=== PATIENT | female | born 1945 | race Caucasian/White ===

== ENCOUNTER 2016-08-19 10:23 | Emergency (ER) | payer MEDICARE, MEDICAID ==
[2016-08-19] MEDS ORDERED: MEPERIDINE HCL/PF 50 MG/ML SYRG IV ONE (10:55)
[2016-08-19] MEDS ORDERED: MEPERIDINE HCL/PF 50 MG/ML SYRG ONE (10:57)
[2016-08-19 11:08] LABS: Hematocrit 46.3 % (37.0-47.0); Hemoglobin 15.3 gm/dL (12.5-16.0); Mean Cell Volume 83.4 fl (78-100); Mean Corpuscular Hemoglobin 27.6 pg (27-31); Mean Platelet Volume 9.8 fl (6.0-9.5); Neutrophil # 3.6 K/mm3 (1.3-6.0); Neutrophil % 66.5 % (42-75.0); Platelet Count 170 K/mm3 (150-450); Red Blood Count 5.55 M/mm3 (4.2-5.4); White Blood Count 5.4 K/mm3 (4.0-10.5)
[2016-08-19 11:22] LABS: Albumin * 3.5 gm/dl (3.4-5.0); Anion Gap 14.4 mmol/L (6.8-13.8); Bilirubin, Total 0.3 mg/dL (0.0-1.1); Ca. Corrected For Albumin 9.2 mg/dL (8.4-10.2); Calcium * 9.1 mg/dL (7.9-10.9); Carbon Dioxide 24.2 mmol/L (24-32.6); Potassium 3.6 mmol/L (3.4-4.6); Total Protein 7.3 gm/dL (6.2-8.2)
[2016-08-19] MEDS ORDERED: ORPHENADRINE CITRATE 100 MG TABLET.SA PO ONE ×2 (11:45→11:51)
[2016-08-19 12:28] LABS: Urine Bilirubin Negative (NEGATIVE); Urine Ketone Negative (NEGATIVE); Urine Protein Negative (NEGATIVE); Urine Urobilinogen Normal (NORMAL); Urine pH 5.5 pH (5.0-7.0)
[2016-08-19 12:30] LABS: Urine Appearance Slightly Cloudy; Urine Bacteria 3+; Urine Blood 10 /ul (NEGATIVE); Urine Color Yellow; Urine Nitrite Positive (NEGATIVE); Urine RBC 0-5 /hpf (0-5)
--- NOTE | 2016-08-19 14:01 | ERNOTE ---
Back Pain ER HPI Presenting Symptoms: injury/pain to back Time Seen by Provider: 08/19/16 10:49 Source: patient Exam Limitations: no limitations Immunizations: IMMUNIZATION HX Immunizations Up to Date Yes History of Influenza Vaccine Yes Hx Pneumococcal Vaccination No Allergies/Adverse Reactions: Allergies metronidazole [From Flagyl] Allergy (Mild, Verified 08/19/16 10:44) Hives Metronidazole HCl [From Flagyl] Allergy (Mild, Verified 08/19/16 10:44) Hives Iodinated Contrast Media - IV Dye Adverse Reaction (Mild, Verified 08/19/16 10: 44) HOT FLASHES, SEVERE HEADACHE iodine Adverse Reaction (Mild, Verified 08/19/16 10:44) HOT FLASHES, SEVERE HEADACHE morphine Adverse Reaction (Mild, Verified 08/19/16 10:44) GI, HALLUCINATIONS oxycodone [Oxycodone] Adverse Reaction (Mild, Verified 08/19/16 10:44) GI, HALLUCINATIONS Home Medications: HOME MEDICATIONS Levothyroxine Sodium [Tirosint] 50 mcg PO DAILY 11/14/13 [Last Taken 12/22/13] Aspirin [Aspirin Enteric Coated] 81 mg PO DAILY 03/06/14 [Last Taken Unknown] traMADol HCL [Ultram] 50 mg PO TID PRN 03/06/14 [Last Taken Unknown] Lisinopril [Zestril] 10 mg PO DAILY 11/20/15 [Last Taken Unknown] Metoclopramide HCl [Reglan] 10 mg PO ACHS PRN #60 tab 11/20/15 [Last Taken Unknown] busPIRone HCL [Buspar] 20 mg PO DAILY 11/20/15 [Last Taken Unknown] Ciprofloxacin HCl [Cipro] 500 mg PO BID #14 tab 08/19/16 [Last Taken Unknown] Dicyclomine HCl [Bentyl] 20 mg PO PRN 08/19/16 [Last Taken Unknown] Omeprazole 40 mg PO DAILY 08/19/16 [Last Taken Unknown] Orphenadrine Citrate [Norflex] 100 mg PO Q12H #15 tablet.sa 08/19/16 [Last Taken Unknown] Narrative: Patient began having low back pain Thursday. No injury. This waxed and waned and became worse Thursday. Hurts to move and radiates to her abdomen but she relates chronic abdominal pain. No falls. No radiation of pain to legs. No focal N/T/W. No loss of bowel or bladder control. No CP or SOB. No fever. Went to Chiropractor. Pain can be severe. Worse with turning or movement. Timing: Reports: constant Quality/Severity: Reports: moderate Location of pain: Reports: lower back, no radiation. Denies: radiating to rt thigh/leg, radiating to lf thigh/leg Activities at Onset: Reports: none Recent Injury?: Reports: no Modifying Factors - (Improves): Reports: other - rest Modifying Factors - (Worsens): Reports: movement to right, movement to left Associated Symptoms: Denies: fever/chills, constipation/incontinence, nausea/ vomiting, problems urinating, difficulty walking, numbess/weakness in legs Prior Treament: Denies: treated by physician Review of Systems - Review of Systems Constitutional: Present: no symptoms reported EYE: Present: no symptoms reported Respiratory: Present: no symptoms reported. Absent: shortness of breath Cardiology: Absent: chest pain Gastrointestinal/Abdominal: Present: See HPI Skin: Absent: rash Neurological: Absent: weakness All Other Systems: All systems neg except as marked - Patient's Past Medical History Patient History - Medical: GERD, Hypothyroidism, Other Patient History - Cancer: No Hx of Cancer Patient History - Surgical Procedures: Appendectomy, Cholecystectomy, Hysterectomy - Social History Smoking Status: Former smoker Have you smoked in the past 12 months: No Do you dip or chew tobacco: No Alcohol Use: none Drug Use: none Physical Exam - Physical Exam General Appearance: Present: alert, no apparent distress. Absent: anxious, lethargic Eye Exam: Normal inspection: bilateral Ears, Nose, Throat: Present: normal ENT inspection Neck: Present: normal inspection Respiratory: Present: no respiratory distress, normal breath sounds, no accessory muscle use, lungs clear Cardiovascular/Chest: Present: regular rate, rhythm, no murmur, normal peripheral pulses Gastrointestinal/Abdominal: Present: normal bowel sounds, nondistended, soft, no organomegaly, other - Minimal suprapubic tenderness. No guarding or rebound. No peritoneal signs. Non-surgical abdomen. Back Exam: Present: normal inspection, other - tenderness paraspinal muscles bilaterally low back. palpation of the musculature seems to reproduce her pain. Neurological Exam: Present: alert, normal mood/affect, no motor/sensory deficits , equipment services associate II-XII nml as tested, other - Patellar tendon reflexes equal and symmetric. No motor or sensory deficits. No evidence of neuro deficit or cauda -equina syndrome.. Absent: motor weakness Skin Exam: Absent: skin rash ED Progress - Results and Orders Patient's Lab Results:: I have reviewed the patient's lab results. - Vital Signs Patient's Vital Signs:: I have reviewed the patient's vital signs. Vital Signs: Vital Signs 08/19/16 08/19/16 08/19/16 10:40 11:10 11:40 Temperature 36.4 C L Pulse Rate 112 H 83 73 Respiratory 14 Rate Blood Pressure 147/95 134/79 122/57 O2 Sat by Pulse 96 Oximetry 08/19/16 08/19/16 12:04 13:26 Temperature Pulse Rate 76 63 Respiratory 16 Rate Blood Pressure 142/69 O2 Sat by Pulse 97 97 Oximetry - CT/Ultrasound CT/Ultrasound Narrative: CT abd/pelvis reviewed radiology report. - Progress/Reassessment Chief Complaint: Back Pain Progress:: Improved Progress Note-Subjective: 08/19/16 13:55 No evidence of cauda-equina syndrome. No clear acute intra-abdominal process. Clinically muscular pain, nothing to suggest diskitis or abscess. UTI noted. She feels like going home. I discussed warning signs and reasons to return as well as the need for close f/u. - Transfer of Care Additional Notes: No evidence of sepsis or pyelonephritis. Departure Clinical Impression: Back pain - Departure Disposition: Home self-care Condition: Stable Instructions: Back Pain, Adult Additional Instructions: Rest. Antibiotic and muscle relaxant as directed. Follow-up with your primary doctor within 48 hours for a re-check. Return for fever, vomiting, increased pain, numbness, tingling, weakness, loss of bowel or bladder control or if your condition worsens or changes in any way. Prescriptions: Ciprofloxacin HCl [Cipro] 500 mg PO BID #14 tab Orphenadrine Citrate [Norflex] 100 mg PO Q12H #15 tablet.sa
[2016-08-19 14:41] VITALS: BP 133/67
== END 2016-08-19 14:20 | disposition home or self-care (01) ==
LOC: ER 10:23
DX: M54.5 Low back pain (principal); Z87.891 Personal history of nicotine dependence; E03.9 Hypothyroidism, unspecified; K21.9 Gastro-esophageal reflux disease without esophagitis; R10.9 Unspecified abdominal pain

== ENCOUNTER 2016-10-12 02:07 | Observation (INO) | payer MEDICARE, MEDICAID ==
[2016-10-12] MEDS ORDERED: NITROGLYCERIN 0.4 MG/TAB BTL SL ONE (02:19)
[2016-10-12] MEDS ORDERED: BELLADONNA ALKALOIDS/PHENOBARB 60 ML BTL PO ONE (02:21)
[2016-10-12] MEDS ORDERED: MAG HYDROX/ALUMINUM HYD/SIMETH 30 ML UDC PO ONE ×2 (02:21→02:22)
[2016-10-12] MEDS ORDERED: LIDOCAINE HCL 20 ML UDC PO ONE ×2 (02:21→02:22)
[2016-10-12 02:37] LABS: Hematocrit 40.8 % (37.0-47.0); Hemoglobin 13.9 gm/dL (12.5-16.0); Mean Cell Volume 82.6 fl (78-100); Mean Corpuscular Hemoglobin 28.1 pg (27-31); Mean Corpuscular Hgb Conc 34.1 g/dl (32-36); Mean Platelet Volume 10.4 fl (6.0-9.5); Neutrophil # 3.8 K/mm3 (1.3-6.0); Neutrophil % 79.9 % (42-75.0); Platelet Count 137 K/mm3 (150-450); Red Blood Count 4.94 M/mm3 (4.2-5.4); Red Cell Distribution Width 13.6 % (11.5-14.0); White Blood Count 4.8 K/mm3 (4.0-10.5)
--- NOTE | 2016-10-12 02:44 | ERNOTE ---
Chest Pain/Cardiac HPI Chief Complaint: Chest Pain Time Seen by Provider: 10/12/16 02:21 Source: patient Exam Limitations: no limitations Immunizations: IMMUNIZATION HX Immunizations Up to Date Yes History of Influenza Vaccine Yes Hx Pneumococcal Vaccination No Allergies/Adverse Reactions: Allergies metronidazole [From Flagyl] Allergy (Mild, Verified 08/19/16 10:44) Hives Metronidazole HCl [From Flagyl] Allergy (Mild, Verified 08/19/16 10:44) Hives Iodinated Contrast Media - IV Dye Adverse Reaction (Mild, Verified 08/19/16 10: 44) HOT FLASHES, SEVERE HEADACHE iodine Adverse Reaction (Mild, Verified 08/19/16 10:44) HOT FLASHES, SEVERE HEADACHE morphine Adverse Reaction (Mild, Verified 08/19/16 10:44) GI, HALLUCINATIONS oxycodone [Oxycodone] Adverse Reaction (Mild, Verified 08/19/16 10:44) GI, HALLUCINATIONS Home Medications: HOME MEDICATIONS Levothyroxine Sodium [Tirosint] 50 mcg PO DAILY 11/14/13 [Last Taken 12/22/13] Aspirin [Aspirin Enteric Coated] 81 mg PO DAILY 03/06/14 [Last Taken Unknown] traMADol HCL [Ultram] 50 mg PO TID PRN 03/06/14 [Last Taken Unknown] Lisinopril [Zestril] 10 mg PO DAILY 11/20/15 [Last Taken Unknown] Metoclopramide HCl [Reglan] 10 mg PO ACHS PRN #60 tab 11/20/15 [Last Taken Unknown] busPIRone HCL [Buspar] 20 mg PO DAILY 11/20/15 [Last Taken Unknown] Ciprofloxacin HCl [Cipro] 500 mg PO BID #14 tab 08/19/16 [Last Taken Unknown] Dicyclomine HCl [Bentyl] 20 mg PO PRN 08/19/16 [Last Taken Unknown] Omeprazole 40 mg PO DAILY 08/19/16 [Last Taken Unknown] Orphenadrine Citrate [Norflex] 100 mg PO Q12H #15 tablet.sa 08/19/16 [Last Taken Unknown] Narrative: Here for substernal chest pain which woke her up from sleep. chest pain is substernal and pressure like and radiated to the right jaw area. She was brought in by ambulance, had two nitros and it felt better but still there. After the third nitro pain got better yet, it completely resolved after GI coctail Review of Systems - Review of Systems Constitutional: Present: fatigue EYE: Present: no symptoms reported ENT: Present: no symptoms reported Respiratory: Present: no symptoms reported Cardiology: Present: See HPI Gastrointestinal/Abdominal: Present: See HPI Musculoskeletal: Present: no symptoms reported Skin: Present: no symptoms reported - Patient's Past Medical History Patient History - Medical: GERD, Hypothyroidism, Other Patient History - Cardiac/Respiratory: Hypertension Patient History - Cancer: No Hx of Cancer Patient History - Surgical Procedures: Appendectomy, Cholecystectomy, Hysterectomy Patient History - Other: None - Social History Psych History: No pertinent hx Smoking Status: Former smoker Have you smoked in the past 12 months: No Alcohol Use: none Drug Use: none - Immunizations Immunizations Up to Date: Yes Hx Pneumococcal Vaccination: No History of Influenza Vaccine: Yes Physical Exam - Physical Exam General Appearance: Present: wd/wn, alert, no apparent distress Ears, Nose, Throat: Present: normal ENT inspection Neck: Present: normal inspection, nontender Respiratory: Present: no respiratory distress, normal breath sounds, no accessory muscle use, chest nontender, lungs clear Cardiovascular/Chest: Present: regular rate, rhythm, no murmur, normal peripheral pulses Gastrointestinal/Abdominal: Present: normal bowel sounds, nontender, nondistended, soft, no organomegaly Extremity Exam: Present: normal inspection, non-tender Neurological Exam: Present: alert, oriented, normal mood/affect ED Progress - Results and Orders Patient's Lab Results:: I have reviewed the patient's lab results. - Vital Signs Patient's Vital Signs:: I have reviewed the patient's vital signs. Vital Signs: Vital Signs 10/12/16 02:12 Temperature 37.1 C Pulse Rate 104 H Respiratory 14 Rate Blood Pressure 144/78 O2 Sat by Pulse 94 Oximetry - X-Ray X-Ray #1 X-Ray: chest - Progress/Reassessment Chief Complaint: Chest Pain Departure - Departure Clinical Impression: Chest pain Qualifiers: Chest pain type: unspecified Qualified Code(s): R07.9 - Chest pain, unspecified Disposition: [facility] Condition: Fair Referrals: Jennifer Perez MD [Primary Care Provider] -
--- OUTSIDE RECORDS SUMMARY | 2016-10-12 02:49 | XMS REPORT | Continuity of Care Document ---
:1945 Author Organization [facility] ([facility]) Address [address] [place] [address] Phone [phone] Care Team Providers Name Role Phone Jennifer Perez Primary Care Provider [phone] Source Comments This disclosure is being made pursuant to the Care Everywhere program, applicable federal and state laws, and may not contain all informaitonavailable regarding this patient.[facility] ([facility]) Active Allergies and Adverse Reactions Allergen Noted Date Severity Reactions Comments Iodinated Contrast 01/03/2014 Tachycardia Patient states she has Media - Oral And Iv a reaction to IV Dye contrast in 2009. She became tachycardic and "very sick". She has taken premeds before and was fine. SASmith Morphine Nausea & dilusions Vomiting,Stomach Pain Other Agent Nausea & red dye Contrast Dye Vomiting,Stomach Pain Oxycodone 12/04/2009 Nausea & Vomiting Current Medications Prescription Sig. Disp. Refills Start Date End Date Status traMADol 50 mg Take 50 mg by Active tablet mouth 3 times daily as needed. aspirin 81 mg EC Take 81 mg by Active tablet mouth daily. LISINOPRIL 10 mg Take 1 Tab by 11/08/2014 Active tablet mouth daily. busPIRone 10 mg Take 2 Tabs by 60 Tab 5 11/14/2014 Active tablet mouth at bedtime. Indications: abd pain diclofenac Apply Active (VOLTAREN) 1 % topically 4 topical gel times daily SUPPLY TRUETEST 0 07/24/2015 Active blood glucose test strip omeprazole 40 mg Take 1 capsule 180 capsule 3 02/26/2016 Active enteric coated (40 mg total) capsule by mouth 2 times daily. levothyroxine 50 Take 1 tablet 1 08/05/2016 Active mcg tablet by mouth daily. LIDOCAINE VISCOUS 2 Take 15 mL by 0 07/23/2016 Active % solution mouth as needed. cholestyramine-aspa Take 4 g by 210 g 1 09/23/2016 Active rtame 4 gram oral mouth daily. powder levothyroxine Take 25 mcg by Discontinued (LEVOTHROID) 25 mcg mouth every 7 tablet morning before breakfast. riFAXimin (XIFAXAN) Take 1 tablet 20 tablet 0 03/14/2016 Discontinued 550 mg tablet (550 mg total) 7 by mouth 2 times daily. cholestyramine-aspa Take 2 g by 210 g 1 04/10/2016 Discontinued rtame 4 gram oral mouth daily. 7 powder Active Problems Problem Noted Date Hypokalemia 03/20/2014 Acute gastritis 01/06/2014 Migraine without intractable migraine 01/06/2014 Acute gastritis without mention of hemorrhage 01/05/2014 Abdominal pain, epigastric 01/02/2014 Hypothyroidism 01/02/2014 Abdominal pain, chronic, epigastric 07/07/2013 Intestinal bacterial overgrowth 07/07/2013 SAH (subarachnoid hemorrhage) 02/28/2010 Overview: 2002 cerebral aneurysm? CT angio x 2 without obvious aneurysm. Cataract 01/11/2009 Overview: L eye. Surgery would not help due to the Macular Degeneration Diverticulosis of colon 01/11/2009 Macular degeneration (senile) of retina, unspecified 09/25/2008 Last Assessment & Plan: Formatting of this note may be different from the original. RIGHT EYE LEFT EYE Date Diagnosis Procedure Comments Diagnosis Procedure Comments negative negative Esophageal reflux 01/04/2008 Other and unspecified hyperlipidemia 03/03/2007 Chronic low back pain 03/03/2007 Resolved Problems Problem Noted Date Resolved Date termite helper (current) use of anticoagulants 03/04/2010 07/07/2013 Overview: ANTICOAGULATION PROFILE: Primary Number: Other [Mendy Fleming, [id number] (okay to discuss INR results with maria alejandra Pelletier] PHYSICIAN: Shadi Murguia Pharmacy: [facility] LOCAL LAB: Name: [facility] Indication for Warfarin: Superior Mesenteric Vein Thrombosis Target INR Range: 2.0-3.0 Duration of Warfarin Therapy: 6 months (per Dr. 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 07/07/2013 Most Recent Encounters Date Type Specialty Providers Description 09/23/2016 Office Visit Med GI/Hepatology Jose Luis Montero MD Dx: Diarrhea, Carol Arauz, unspecified type PA-C (Primary Dx) 09/23/2016 Telephone Pharmacy Maria A David [facility] Chief Comp: Medication Question 09/16/2016 Office Visit Med GI/Hepatology Jose Luis Montero MD Chief Comp: Patient Carol Arauz, Reported Reason For PA-C Visit Immunizations Name Dates Previously Given Next Due Pneumococcal Polysaccharide, PPSV23 (Pneumovax 23) 11/27/2009 Social History Tobacco Use Types Packs/Day Years Used Date Former Smoker Cigarettes 1 46 Quit: 04/26/2008 Smokeless Tobacco: Never Used Tobacco Cessation:Counseling Given: Yes Comments:quit 04/2008 Alcohol Use Drinks/Week oz/Week Comments No Last Filed Vital Signs Vital Sign Reading Time Taken Blood Pressure 144/85 09/23/2016 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 Pulse 74 09/23/2016 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 Temperature 36.6 C (97.9 F) 09/23/2016 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 Respiratory Rate 16 09/06/2015 9:43 AM SLIP COVER CUTTER Height 1.575 m (5' 2.01") 09/23/2016 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 Weight 83.3 kg (183 lb 10.3 oz) 09/23/2016 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 Body Mass Index 33.58 09/23/2016 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 Oxygen Saturation 96% 09/06/2015 9:43 AM SLIP COVER CUTTER Plan of Care Date Type Specialty Providers Description 04/07/2017 Appointment Med GI/Hepatology Jose Luis Montero MD [address] [place] [address] [phone] (Fax) Subj: Appointment Carol Arauz PA-C [address] [place] [address] [phone] (Fax) Scheduled Health Maintenance Due Date Last Done Comments Hepatitis B Vaccine (1 of 3 1945 - Primary Series) Tdap Vaccine 1955 Td Vaccine 1962 Zoster Vaccine 2004 Osteoporosis Screening (DXA 2009 Bone Density) Mammogram 05/14/2010 05/14/2009, 04/11/2008, 02/10/2007 Pneumococcal Vaccine (2 of 2 11/27/2010 11/27/2009 - PCV13) Lipid Disorder Screening 12/15/2014 12/15/2009, Additional history exists 01/11/2009, 09/25/2008 Influenza Vaccine: Seasonal 02/25/2016 (#1) Colonoscopy 09/13/2023 09/13/2013, 02/24/2007 Results from Last 3 Months Not on file
[2016-10-12] MEDS ORDERED: ONDANSETRON HCL/PF 2 MG/ML VIAL IV ONE (03:02)
[2016-10-12] MEDS ORDERED: ONDANSETRON HCL/PF 2 MG/ML VIAL ONE (03:03)
--- OUTSIDE RECORDS SUMMARY | 2016-10-12 03:04 | XMS REPORT | Continuity of Care Document ---
:1945 Author Organization [facility] ([facility]) Address [address] [place] [address] Phone [phone] Care Team Providers Name Role Phone Jennifer Perez Primary Care Provider [phone] Source Comments This disclosure is being made pursuant to the Care Everywhere program, applicable federal and state laws, and may not contain all informaitonavailable regarding this patient.[facility] ([facility]) Active Allergies and Adverse Reactions Allergen Noted [...] Resolved Problems Problem Noted Date Resolved Date exterminator helper (current) use of anticoagulants 03/04/2010 07/07/2013 Overview: ANTICOAGULATION PROFILE: Primary Number: Other [Mendy Fleming, [id number] (okay to discuss INR results with maria alejandra Pelletier] PHYSICIAN: Shadi Murguia Pharmacy: [facility] LOCAL LAB: Name: [facility] Indication for Warfarin: Superior Mesenteric Vein Thrombosis [...] Dx) 09/23/2016 Telephone Pharmacy Maria A David [facility] Chief Comp: Medication Question 09/16/2016 Office Visit [...] Taken Blood Pressure 144/85 09/23/2016 11:29 AM COMMERCIAL LEASING MANAGER Pulse 74 09/23/2016 11:29 AM COMMERCIAL LEASING MANAGER Temperature 36.6 C (97.9 F) 09/23/2016 11:29 AM COMMERCIAL LEASING MANAGER Respiratory Rate 16 09/06/2015 9:43 AM COMMERCIAL LEASING MANAGER Height 1.575 m (5' 2.01") 09/23/2016 11:29 AM COMMERCIAL LEASING MANAGER Weight 83.3 kg (183 lb 10.3 oz) 09/23/2016 11:29 AM COMMERCIAL LEASING MANAGER Body Mass Index 33.58 09/23/2016 11:29 AM COMMERCIAL LEASING MANAGER Oxygen Saturation 96% 09/06/2015 9:43 AM COMMERCIAL LEASING MANAGER Plan of Care Date Type Specialty Providers Description 04/07/2017 Appointment Med GI/Hepatology Jose Luis Montero MD [address] [place] [address] [phone] (Fax) Subj: Appointment Carol Arauz PA-C [address] [place] [address] [phone] (Fax) Scheduled Health Maintenance Due Date Last [...]
[2016-10-12 03:07] LABS: ALT 27 U/L (19-67); AST 21 U/L (0-48); Albumin * 3.2 gm/dl (3.4-5.0); Alkaline Phosphatase * 100 U/L (50-170); Anion Gap 14.3 mmol/L (6.8-13.8); BUN/Creatinine Ratio 13.8 (9.0-21.6); Bilirubin, Total 0.5 mg/dL (0.0-1.1); Blood Urea Nitrogen 12 mg/dL (3-23); Ca. Corrected For Albumin 8.6 mg/dL (8.4-10.2); Calcium * 8.3 mg/dL (7.9-10.9); Carbon Dioxide 24.5 mmol/L (24-32.6); Chloride 103 mmol/L (97-106); Glucose * 135 mg/dL (70-110); Potassium 3.8 mmol/L (3.4-4.6); Sodium 138 mmol/L (132-142); Total Protein 6.7 gm/dL (6.2-8.2); Troponin I Less than 0.017 ng/ml (0.00-0.10)
[2016-10-12] MEDS ORDERED: DICYCLOMINE HCL 20 MG TABLET PO PRN (03:50)
[2016-10-12] MEDS ORDERED: traMADol HCL 50 MG TABLET PO PRN (03:50)
--- NOTE | 2016-10-12 04:10 | HP ---
Chief Complaint - Chief Complaint Date of Service: 10/12/16 Time of Service: 03:54 Chief Complaint: Chest pain History of Present Illness: 71 years old female adm to the hospital from ER with reports of substernal chest pain radiated to the left jaw and epigastric discomfort. pt stated she was asleep when she was awaken with tight feeling across her chest accompanied with nausea. She denies vomiting, diaphoresis and palpitation. pt stated she called EMS and was brought to [facility] ER, Enroute to the hospital she was given nitro tab x2 and aspirin without relief. She got GI cocktail and had complete relief. Per pt daughter she was in the ER 6 weeks ago with similar s/s that was resolved with GI cocktail. PMH significant for GERD, hypertension, depression and hypothyriodism. Plan of cared discussed with pt and family they verbalized understanding and agrees. - Patient's Past Medical History Patient History - Medical: GERD, Hypothyroidism, Other Patient History - Cardiac/Respiratory: Hypertension Patient History - Cancer: No Hx of Cancer Patient History - Surgical Procedures: Appendectomy, Cholecystectomy, Hysterectomy Patient History - Other: None - Family History Mother Family History - Medical: Father Family History - Medical: - Social History Living Situations: alone Psych History: No pertinent hx, Hx of Depression Smoking Status: Former smoker Have you smoked in the past 12 months: No Alcohol Use: none Drug Use: none - Immunizations Immunizations Up to Date: Yes Hx Pneumococcal Vaccination: No History of Influenza Vaccine: Yes Review Of Systems (GEN) - Review of Systems Generalized/Overall Review: Present: No Symptoms Reported EENTM: Present: No Symptoms Reported Respiratory: Present: No Symptoms Reported Cardiac: Present: No Symptoms Reported Abdominal: Present: Diarrhea Genitourinary: Present: No Symptoms Reported Musculoskeletal: Present: No Symptoms Reported Neurological: Present: No Symptoms Reported Skin: Present: No Symptoms Reported Endocrine: Present: No Symptoms Reported Allergies/Adverse Reactions: Allergies Allergy/AdvReac Type Severity Reaction Status Date / Time Metronidazole HCl Allergy Mild Hives Verified 10/12/16 02:48 [From Flagyl] Iodinated Contrast Media - AdvReac Mild HOT Verified 10/12/16 02:48 IV Dye FLASHES, SEVERE HEADACHE iodine AdvReac Mild HOT Verified 10/12/16 02:48 FLASHES, SEVERE HEADACHE morphine AdvReac Mild GI, Verified 10/12/16 02:48 HALLUCINATIONS oxycodone [Oxycodone] AdvReac Mild GI, Verified 10/12/16 02:48 HALLUCINATIONS Home Medications: HOME MEDICATIONS Levothyroxine Sodium [Tirosint] 50 mcg PO DAILY 11/14/13 [Last Taken 12/22/13] Aspirin [Aspirin Enteric Coated] 81 mg PO DAILY 03/06/14 [Last Taken Unknown] traMADol HCL [Ultram] 50 mg PO TID PRN 03/06/14 [Last Taken Unknown] Lisinopril [Zestril] 10 mg PO DAILY 11/20/15 [Last Taken Unknown] busPIRone HCL [Buspar] 10 mg PO DAILY 11/20/15 [Last Taken Unknown] Dicyclomine HCl [Bentyl] 20 mg PO TID PRN 08/19/16 [Last Taken Unknown] Cholestyramine (with Sugar) [Questran Powder] 378 gm PO BID 10/12/16 [Last Taken Unknown] Dexlansoprazole [Dexilant] 60 mg PO DAILY 10/12/16 [Last Taken Unknown] Omeprazole Magnesium [Prilosec Otc] 40 mg PO BID 10/12/16 [Last Taken Unknown] Exam - Exam Vital Signs: Vital Signs - Last Taken Temp 37.1 C 10/12/16 02:12 Pulse 84 10/12/16 03:36 Resp 18 10/12/16 03:36 BP 110/57 10/12/16 03:36 Pulse Ox 96 10/12/16 03:36 Constitutional: Present: Alert, Oriented x3, Cooperative, Well developed, No distress, Elderly, Obese ENT Exam: Present: moist mucous membranes Eye Exam: bilateral eye: PERRL Neck: Present: full range of motion Back Exam: Present: normal inspection Respiratory: Present: chest non-tender, lungs clear, normal breath sounds, no respiratory distress Cardiovascular/Chest: Present: normal peripheral pulses, regular rate, rhythm, no chest tenderness, no edema, tachycardia Peripheral Pulses: dorsalis-pedis (R): 3+, dorsalis-pedis (L): 3+ Abdomen: Present: Normal bowel sounds, soft, nontender, nondistended, no rebound tenderness /Rectal: Present: Exam deferred Extremity: Present: normal range of motion, non-tender, normal inspection, no pedal edema, no calf tenderness Skin Exam: Present: normal color, warm/dry, no cyanosis Neurologic: Present: oriented x 3 Appearance: Present: appropriate appearance Eye contact: Present: cooperative Diagnostic Studies: Laboratory Results WBC 4.8 K/mm3 (4.0-10.5) 10/12/16 02:30 RBC 4.94 M/mm3 (4.2-5.4) 10/12/16 02:30 Hgb 13.9 gm/dL (12.5-16.0) 10/12/16 02:30 Hct 40.8 % (37.0-47.0) 10/12/16 02:30 MCV 82.6 fl (78-100) 10/12/16 02:30 MCH 28.1 pg (27-31) 10/12/16 02:30 MCHC 34.1 g/dl (32-36) 10/12/16 02:30 RDW 13.6 % (11.5-14.0) 10/12/16 02:30 Plt Count 137 K/mm3 (150-450) L 10/12/16 02:30 MPV 10.4 fl (6.0-9.5) H 10/12/16 02:30 Immature Gran % (Auto) 0.20 % (0.001-0.429) 10/12/16 02:30 Immature Gran # (Auto) 0.01 K/mm3 (0.000-0.0310) 10/12/16 02:30 Neutrophils % 79.9 % (42-75.0) H 10/12/16 02:30 Lymphocytes % 12.6 % (20-51) L 10/12/16 02:30 Monocytes % 4.8 % (0.0-9) 10/12/16 02:30 Eosinophils % 1.9 % (0.0-3.0) 10/12/16 02:30 Basophils % 0.6 % (0.0-1.0) 10/12/16 02:30 Nucleated RBC % 0.0 k/mm3 (0-1) 10/12/16 02:30 Neutrophils # 3.8 K/mm3 (1.3-6.0) 10/12/16 02:30 Lymphocytes # 0.6 k/mm3 (1.5-3.5) L 10/12/16 02:30 Monocytes # 0.2 k/mm3 (0.0-1.0) 10/12/16 02:30 Eosinophils # 0.1 k/mm3 (0.0-0.7) 10/12/16 02:30 Absolute Basophils 0.0 k/mm3 (0.0-0.1) 10/12/16 02:30 Sodium 138 mmol/L (132-142) 10/12/16 02:30 Plasma Sodium 139 mmol/L (130-142) 10/12/16 02:30 Potassium 3.8 mmol/L (3.4-4.6) 10/12/16 02:30 Chloride 103 mmol/L (97-106) 10/12/16 02:30 Carbon Dioxide 24.5 mmol/L (24-32.6) 10/12/16 02:30 Anion Gap 14.3 mmol/L (6.8-13.8) H 10/12/16 02:30 BUN 12 mg/dL (3-23) 10/12/16 02:30 Creatinine 0.87 mg/dL (0.4-1.4) 10/12/16 02:30 Est GFR (Non-Af Amer) 68 mL/min (60-130) 10/12/16 02:30 BUN/Creatinine Ratio 13.8 (9.0-21.6) 10/12/16 02:30 Random Glucose 135 mg/dL (70-110) H 10/12/16 02:30 Calcium 8.3 mg/dL (7.9-10.9) 10/12/16 02:30 Calcium Adj for Albumin 8.6 mg/dL (8.4-10.2) 10/12/16 02:30 Total Bilirubin 0.5 mg/dL (0.0-1.1) 10/12/16 02:30 AST 21 U/L (0-48) 10/12/16 02:30 ALT 27 U/L (19-67) 10/12/16 02:30 Alkaline Phosphatase 100 U/L (50-170) 10/12/16 02:30 CK-MB (CK-2) Less than 0.5 ng/mL (0.0-9.0) 10/12/16 02:30 Troponin I Less than 0.017 ng/ml (0.00-0.10) 10/12/16 02:30 Total Protein 6.7 gm/dL (6.2-8.2) 10/12/16 02:30 Albumin 3.2 gm/dl (3.4-5.0) L 10/12/16 02:30 Assessment/Plan - Narrative Narrative: Chest pain vs GERD pt was woken by chest discomfort. EMS [facility] she was given nitro tab x2 and aspirin without relief Additional Nitro tabx1 given in ER, pt pain persist and totally resolved with GI cocktail pt stated she was at the ER 6 weeks ago for similar complaints that was resolved with GI cocktail and told s/s were GI related EKG: ? CXR:pending Initial cardiac markers negative, serial cardiac markers pending Supplemented oxygen and wean off Lipid panel pending Hypertension- stable On adm BP 110/57 Monitor vital signs Resume home medication Hypothyriodism Resume home dose of medications TSH pending GERD: Resume home dose of mediation Code status: Full VTE ppx: SCd and ambulate GI ppx Pepcid Anticipate discharge home 0-1 day and follow up with PCP and may have stres test out-pt Time 30 minutes - Assessment/Plan (1) Chest pain Problem: Acute Qualifiers: Chest pain type: unspecified Qualified Code(s): R07.9 - Chest pain, unspecified (2) Hypertension Problem: Chronic Qualifiers: Hypertension type: essential hypertension Qualified Code(s): I10 - Essential (primary) hypertension (3) GERD (gastroesophageal reflux disease) Problem: Chronic (4) Hypothyroidism Problem: Chronic (5) Depression Problem: Chronic
[2016-10-12] MEDS ORDERED: ONDANSETRON HCL/PF 2 MG/ML VIAL IV PRN (04:34)
[2016-10-12] MEDS ORDERED: SIMETHICONE 80 MG TAB.CHEW PO PRN (04:35)
[2016-10-12] MEDS ORDERED: LEVOTHYROXINE SODIUM 50 MCG TABLET PO SCH (07:00)
[2016-10-12] MEDS ORDERED: PANTOPRAZOLE SODIUM 40 MG TABLET.EC PO SCH (07:00)
[2016-10-12 07:56] LABS: Chol/HDL Risk Ratio 4.8 mg/dL (3.3-4.4); Cholesterol 160 mg/dL (0-200); HDL Cholesterol 33 mg/dL (40-60); LDL Cholesterol 60 mg/dL (70-130); TSH * 0.988 uIU/mL (0.358-3.74); Triglycerides 336 mg/dL (30-200); Troponin I Less than 0.017 ng/ml (0.00-0.10); VLDL Cholesterol 67 mg/dL (5-40)
[2016-10-12] MEDS ORDERED: ASPIRIN 81 MG TABLET.DR PO SCH (09:00)
[2016-10-12] MEDS ORDERED: DEXLANSOPRAZOLE 60 MG PO SCH (09:00)
[2016-10-12] MEDS ORDERED: LISINOPRIL 10 MG TABLET PO SCH (09:00)
[2016-10-12] MEDS ORDERED: busPIRone HCL 5 MG TABLET PO SCH (09:00)
--- NOTE | 2016-10-12 10:01 | DS ---
<TrMingoJessica - Last Filed: 10/12/16 21:31> Disposition: Home self-care Condition: Stable Referrals: Jennifer Perez MD [Primary Care Provider] - Problem Oriented Discharge Instructions to Patient/Family: Chest Wall Pain, [id number] Print Language (Romanian or Croatian Available): Romanian Additional Patient Instructions (free text): Follow-up with PCP, Dr. Perez, within 1 week on September at 2:00 PM Prescriptions (Any new or edited meds): Ondansetron HCl [Zofran] 4 mg PO Q6H PRN #30 tablet PRN Reason: Nausea And Vomiting Ranitidine HCl [Heartburn Relief] 150 mg PO BID #60 tablet Complete Home Medications List: Complete Home Medication List: Levothyroxine Sodium [Tirosint] 50 mcg PO DAILY 11/14/13 Aspirin [Aspirin Enteric Coated] 81 mg PO DAILY 03/06/14 traMADol HCL [Ultram] 50 mg PO TID PRN 03/06/14 Lisinopril [Zestril] 10 mg PO DAILY 11/20/15 busPIRone HCL [Buspar] 10 mg PO DAILY 11/20/15 Dicyclomine HCl [Bentyl] 20 mg PO TID PRN 08/19/16 Cholestyramine (with Sugar) [Questran Powder] 378 gm PO BID 10/12/16 Omeprazole Magnesium [Prilosec Otc] 40 mg PO BID 10/12/16 Ondansetron HCl [Zofran] 4 mg PO Q6H PRN #30 tablet 10/12/16 Ranitidine HCl [Heartburn Relief] 150 mg PO BID #60 tablet 10/12/16 <Mendy Yang - Last Filed: 10/13/16 11:16> (1) Chest pain Problem: Acute Qualifiers: Chest pain type: unspecified Qualified Code(s): R07.9 - Chest pain, unspecified (2) GERD (gastroesophageal reflux disease) Problem: Chronic Description of Stay: ADMISSION DATE: 10.12.2016 DISCHARGE DATE: 10.12.2016 ADMISSION HPI: 71 years old female adm to the hospital from ER with reports of substernal chest pain radiated to the left jaw and epigastric discomfort. pt stated she was asleep when she was awaken with tight feeling across her chest accompanied with nausea. She denies vomiting, diaphoresis and palpitation. pt stated she called EMS and was brought to [facility] ER, Enroute to the hospital she was given nitro tab x2 and aspirin without relief. She got GI cocktail and had complete relief. Per pt daughter she was in the ER 6 weeks ago with similar s/s that was resolved with GI cocktail. PMH significant for GERD, hypertension, depression and hypothyriodism. Plan of cared discussed with pt and family they verbalized understanding and agrees. HOSPITAL COURSE: Chest pain completed resolved after GI cocktail and pain did not return during her admission. Cardiac enzymes were trended and unremarkable. Patient discharged home in stable condition and instructed to follow-up with her PCP within 1 week. Although pain is most likely related to a GI etiology, consider outpatient cardiac stress test and/or referral for an EGD. FOLLOW-UP APPOINTMENTS: PCP within 1 week NEW OR CHANGED MEDICATIONS: None DISCONTINUED MEDICATIONS: None Procedures Performed: none Discharge Disposition: Home self care Discharge Activity: Activity as tolerated Discharge Diet: Resume usual diet
[2016-10-12 10:22] VITALS: BP 98/56
== END 2016-10-12 11:45 | disposition home or self-care (01) ==
LOC: ER 02:07 → MS 02:59
PROVIDERS: ADMIT Nurse Practitioner; ATTEND Internal Medicine
DX: R07.9 Chest pain, unspecified (principal); K21.9 Gastro-esophageal reflux disease without esophagitis; E03.9 Hypothyroidism, unspecified; I10 Essential (primary) hypertension; Z87.891 Personal history of nicotine dependence
CPT/HCPCS: 36415; 71020; 80053; 80061; 82553; 84443; 84484; 85025; 93005; 96374; 96376; 99283; G0378

== ENCOUNTER 2017-04-23 21:52 | Emergency (ER) | payer MEDICARE, MEDICAID ==
[2017-04-23] MEDS ORDERED: PANTOPRAZOLE SODIUM 40 MG in NORMAL SALINE 100 ML IV ONE (22:56)
[2017-04-23] MEDS ORDERED: NORMAL SALINE 1,000 ML IV ONE (22:56)
[2017-04-23 23:09] LABS: Hematocrit 44.1 % (37.0-47.0); Hemoglobin 14.9 gm/dL (12.5-16.0); Mean Cell Volume 83.2 fl (78-100); Mean Corpuscular Hemoglobin 28.1 pg (27-31); Mean Corpuscular Hgb Conc 33.8 g/dl (32-36); Neutrophil # 3.5 K/mm3 (1.3-6.0); Neutrophil % 61.9 % (42-75.0); Platelet Count 168 K/mm3 (150-450); Red Cell Distribution Width 13.2 % (11.5-14.0); White Blood Count 5.6 K/mm3 (4.0-10.5)
[2017-04-23 23:34] LABS: Albumin * 3.7 gm/dl (3.4-5.0); Anion Gap 11.1 mmol/L (6.8-13.8); Bilirubin, Total 0.2 mg/dL (0.0-1.1); Ca. Corrected For Albumin 8.5 mg/dL (8.4-10.2); Calcium * 8.6 mg/dL (7.9-10.9); Carbon Dioxide 26.8 mmol/L (24-32.6); Potassium 3.9 mmol/L (3.4-4.6); Total Protein 7.3 gm/dL (6.2-8.2)
[2017-04-23 23:45] LABS: Urine Bilirubin Negative (NEGATIVE); Urine Blood Negative /ul (NEGATIVE); Urine Ketone Negative (NEGATIVE); Urine Nitrite Negative (NEGATIVE); Urine Protein Negative (NEGATIVE); Urine Specific Gravity >=1.030 SP.GR. (1.005-1.010); Urine Urobilinogen Normal (NORMAL); Urine pH 5.5 pH (5.0-7.0)
[2017-04-23 23:55] LABS: INR 0.96 INR (0.90-1.10); Partial Thrombolplastin Time 26.6 Seconds (24-32)
[2017-04-23 23:56] LABS: Urine Appearance Cloudy; Urine Bacteria 1+; Urine Color Yellow; Urine RBC None Seen /hpf (0-5); Urine Renal Epithelial Cell Few - 1+ /hpf; Urine Transitional Epi Cells Few - 1+ /hpf
[2017-04-24 00:17] VITALS: BP 142/78
[2017-04-24] MEDS ORDERED: CIPROFLOXACIN HCL 250 MG TABLET PO ONE (00:36)
--- NOTE | 2017-04-24 00:43 | ERNOTE ---
Abdominal HPI - Narrative Date of Service: 04/24/17 - General Chief Complaint: Abdominal Pain Time Seen by Provider: 04/23/17 22:10 Source: patient Exam Limitations: no limitations - Immun/Allergies/Home Medications Immunizatons: IMMUNIZATION HX Immunizations Up to Date Yes History of Influenza Vaccine No Hx Pneumococcal Vaccination Yes Allergies/Adverse Reactions: Allergies Metronidazole HCl [From Flagyl] Allergy (Mild, Verified 10/12/16 02:48) Hives Iodinated Contrast- Oral and IV Dye [Iodinated Contrast Media - IV Dye] Adverse Reaction (Mild, Verified 10/12/16 02:48) HOT FLASHES, SEVERE HEADACHE iodine Adverse Reaction (Mild, Verified 10/12/16 02:48) HOT FLASHES, SEVERE HEADACHE morphine Adverse Reaction (Mild, Verified 10/12/16 02:48) GI, HALLUCINATIONS oxycodone [Oxycodone] Adverse Reaction (Mild, Verified 10/12/16 02:48) GI, HALLUCINATIONS Home Medications: HOME MEDICATIONS Levothyroxine Sodium [Tirosint] 50 mcg PO DAILY 11/14/13 [Last Taken 12/22/13] Aspirin [Aspirin Enteric Coated] 81 mg PO DAILY 03/06/14 [Last Taken Unknown] traMADol HCL [Ultram] 50 mg PO TID PRN 03/06/14 [Last Taken Unknown] Lisinopril [Zestril] 10 mg PO DAILY 11/20/15 [Last Taken Unknown] busPIRone HCL [Buspar] 10 mg PO DAILY 11/20/15 [Last Taken Unknown] Dicyclomine HCl [Bentyl] 20 mg PO TID PRN 08/19/16 [Last Taken Unknown] Cholestyramine (with Sugar) [Questran Powder] 378 gm PO BID 10/12/16 [Last Taken Unknown] Omeprazole Magnesium [Prilosec Otc] 40 mg PO BID 10/12/16 [Last Taken Unknown] Ondansetron HCl [Zofran] 4 mg PO Q6H PRN #30 tablet 10/12/16 [Last Taken Unknown ] - History of Present Illness Narrative: patient has had dark stools for 3 days, history of irritable bowel syndrone Timing: intermittent Quality: mild Activities at Onset: none Modifying Factors - (Worsens): Present: analgesics Associated Symptoms: Present: denies symptoms Prior Abdominal Problems: Present: similar symptoms Review of Systems - Review of Systems Constitutional: Present: See HPI EYE: Present: no symptoms reported ENT: Present: no symptoms reported Respiratory: Present: no symptoms reported Cardiology: Present: no symptoms reported Gastrointestinal/Abdominal: Present: See HPI, nausea Genitourinary: Present: no symptoms reported Musculoskeletal: Present: no symptoms reported Skin: Present: no symptoms reported Neurological: Present: no symptoms reported Endocrine: Present: no symptoms reported Hematologic/Lymphatic: Present: no symptoms reported Psych: Present: no symptoms reported All Other Systems: All systems neg except as marked - Patient's Past Medical History Patient History - Medical: GERD, Hypothyroidism, Other Patient History - Cardiac/Respiratory: Hypertension Patient History - Cancer: No Hx of Cancer Patient History - Surgical Procedures: Appendectomy, Cholecystectomy, Hysterectomy Patient History - Other: None LMP (females 10-50): Menopausal - Family History Family History:: no untoward family reactions to anesthesia, no family history of clotting disorders - Family History Mother Family History - Medical: Family History - Cardiac/Respiratory: No pertinent hx Family History - Cancer: No pertinent family hx Father Family History - Medical: - Social History Living Situations: alone Psych History: No pertinent hx, Hx of Depression Smoking Status: Former smoker Have you smoked in the past 12 months: No Do you dip or chew tobacco: No Alcohol Use: none Drug Use: none - Immunizations Immunizations Up to Date: Yes Hx Pneumococcal Vaccination: Yes History of Influenza Vaccine: No Physical Exam - Physical Exam General Appearance: Present: mild distress Head Exam: Present: normal inspection, no evidence of injury Eye Exam: Normal inspection: bilateral, PERRL: bilateral, EOMI: bilateral Ears, Nose, Throat: Present: normal ENT inspection Neck: Present: normal inspection, nontender Respiratory: Present: no respiratory distress, normal breath sounds, no accessory muscle use, chest nontender, lungs clear Cardiovascular/Chest: Present: regular rate, rhythm, no murmur, normal peripheral pulses Peripheral Pulses: N=norm/S=strong/W=weak/B=bound/A=absent: Carotid (R): Normal , Carotid (L): Normal, Radial (R): Normal, Radial (L): Normal, Femoral (R): Normal, Femoral (L): Normal Gastrointestinal/Abdominal: Present: tenderness - epigastric tenderness Extremity Exam: Present: normal inspection, normal range of motion, no edema Neurological Exam: Present: alert, oriented, normal mood/affect, no motor/ sensory deficits DTR: N=norm/NB=norm/brisk/A=abs/DD=dull/dimin/HC=hyperactive: Bicep (R): Normal , Bicep (L): Normal, Tricep (R): Normal, Tricep (L): Normal, Knee (R): Normal, Knee (L): Normal, Ankle (R): Normal, Ankle (L): Normal Skin Exam: Present: normal color, warm/dry Lymphatic Exam: Present: no adenopathy ED Progress - Results and Orders Patient's Lab Results:: I have reviewed the patient's lab results. - Vital Signs Patient's Vital Signs:: I have reviewed the patient's vital signs. Vital Signs: Vital Signs 04/23/17 04/23/17 04/24/17 22:05 23:04 00:17 Temperature 36.9 C Pulse Rate 80 81 69 Respiratory 18 17 18 Rate Blood Pressure 141/77 142/94 142/78 O2 Sat by Pulse 96 95 97 Oximetry - Progress/Reassessment Chief Complaint: Abdominal Pain Progress:: Improved - report of black stools - Transfer of Care Expected Disposition: Discharge Departure Clinical Impression: GERD (gastroesophageal reflux disease), Melena - Departure Disposition: Home self-care Condition: Fair Instructions: Gastrointestinal Bleeding, [id number] Additional Instructions: to contact dr pina office in am and schedule endoscopy Referrals: Jennifer Perez MD [Primary Care Provider] -
[2017-04-24] MEDS ORDERED: CIPROFLOXACIN HCL 250 MG TABLET ONE (00:50)
== END 2017-04-24 00:59 | disposition home or self-care (01) ==
LOC: ER 21:52
DX: K21.9 Gastro-esophageal reflux disease without esophagitis (principal); K92.1 Melena; E03.9 Hypothyroidism, unspecified; I10 Essential (primary) hypertension

== ENCOUNTER 2017-05-11 00:55 | Observation (INO) | payer MEDICARE, MEDICAID ==
[2017-05-11] MEDS ORDERED: ASPIRIN 81 MG TAB.CHEW PO ONE ×2 (01:03→01:17)
[2017-05-11] MEDS ORDERED: ASPIRIN 81 MG TAB.CHEW ONE (01:05)
[2017-05-11] MEDS ORDERED: SUCRALFATE 1 G/10 ML UDC PO ONE (01:08)
[2017-05-11] MEDS ORDERED: LIDOCAINE HCL 20 ML UDC PO ONE (01:08)
[2017-05-11] MEDS ORDERED: MAG HYDROX/ALUMINUM HYD/SIMETH 30 ML UDC PO ONE (01:08)
[2017-05-11] MEDS ORDERED: PANTOPRAZOLE SODIUM 40 MG TABLET.EC PO ONE (01:20)
[2017-05-11] MEDS ORDERED: PANTOPRAZOLE SODIUM 40 MG TABLET.EC ONE (01:21)
[2017-05-11 01:26] LABS: Hematocrit 43.1 % (37.0-47.0); Hemoglobin 14.8 gm/dL (12.5-16.0); Mean Cell Volume 82.6 fl (78-100); Mean Corpuscular Hemoglobin 28.4 pg (27-31); Mean Corpuscular Hgb Conc 34.3 g/dl (32-36); Neutrophil # 2.8 K/mm3 (1.3-6.0); Neutrophil % 55.1 % (42-75.0); Platelet Count 204 K/mm3 (150-450); Red Blood Count 5.22 M/mm3 (4.2-5.4); Red Cell Distribution Width 13.4 % (11.5-14.0); White Blood Count 5.1 K/mm3 (4.0-10.5)
[2017-05-11 01:37] LABS: Prothrombin Time (Patient) 9.4 Seconds (9.0-11.0)
[2017-05-11 01:38] LABS: INR 0.94 INR (0.90-1.10); Partial Thrombolplastin Time 23.1 Seconds (24-32)
[2017-05-11 01:44] LABS: ALT 31 U/L (19-67); AST 16 U/L (0-48); Albumin * 3.4 gm/dl (3.4-5.0); Alkaline Phosphatase * 105 U/L (50-170); Anion Gap 13.3 mmol/L (6.8-13.8); BUN/Creatinine Ratio 17.8 (9.0-21.6); Bilirubin, Total 0.2 mg/dL (0.0-1.1); Blood Urea Nitrogen 18 mg/dL (3-23); Ca. Corrected For Albumin 8.9 mg/dL (8.4-10.2); Calcium * 8.7 mg/dL (7.9-10.9); Carbon Dioxide 24.4 mmol/L (24-32.6); Chloride 105 mmol/L (97-106); Glucose * 151 mg/dL (70-110); Potassium 3.7 mmol/L (3.4-4.6); Sodium 139 mmol/L (132-142); Total Protein 7.2 gm/dL (6.2-8.2); Troponin I Less than 0.017 ng/ml (0.00-0.10)
[2017-05-11] MEDS: NITROGLYCERIN 0.4 MG/TAB BTL SL PRN ×2 (01:57→02:03)
--- NOTE | 2017-05-11 02:31 | ERNOTE ---
Chest Pain/Cardiac HPI Date of Service: 05/11/17 Chief Complaint: Chest Pain Time Seen by Provider: 05/11/17 02:21 Source: patient Exam Limitations: no limitations Immunizations: IMMUNIZATION HX Immunizations Up to Date Yes History of Influenza Vaccine Yes Hx Pneumococcal Vaccination No Allergies/Adverse Reactions: Allergies Metronidazole HCl [From Flagyl] Allergy (Mild, Verified 05/11/17 01:03) Hives Iodinated Contrast- Oral and IV Dye [Iodinated Contrast Media - IV Dye] Adverse Reaction (Mild, Verified 05/11/17 01:03) HOT FLASHES, SEVERE HEADACHE iodine Adverse Reaction (Mild, Verified 05/11/17 01:03) HOT FLASHES, SEVERE HEADACHE morphine Adverse Reaction (Mild, Verified 05/11/17 01:03) GI, HALLUCINATIONS oxycodone [Oxycodone] Adverse Reaction (Mild, Verified 05/11/17 01:03) GI, HALLUCINATIONS Home Medications: HOME MEDICATIONS Levothyroxine Sodium [Tirosint] 50 mcg PO DAILY 11/14/13 [Last Taken 12/22/13] Aspirin [Aspirin Enteric Coated] 81 mg PO DAILY 03/06/14 [Last Taken Unknown] traMADol HCL [Ultram] 50 mg PO TID PRN 03/06/14 [Last Taken Unknown] Lisinopril [Zestril] 10 mg PO DAILY 11/20/15 [Last Taken Unknown] busPIRone HCL [Buspar] 10 mg PO DAILY 11/20/15 [Last Taken Unknown] Dicyclomine HCl [Bentyl] 20 mg PO TID PRN 08/19/16 [Last Taken Unknown] Cholestyramine (with Sugar) [Questran Powder] 378 gm PO BID 10/12/16 [Last Taken Unknown] Omeprazole Magnesium [Prilosec Otc] 40 mg PO BID 10/12/16 [Last Taken Unknown] Ondansetron HCl [Zofran] 4 mg PO Q6H PRN #30 tablet 10/12/16 [Last Taken Unknown ] Narrative: 71 year old that had a sudden onset of left chest pain that did not radiate and was sharp. The pain lasted one hours prior being seen in the ED. There is a history of GERD, but this pain is different that what than has been previously experienced. The pain was not aggravated or relieved by any thing. Denies any shortness of breath, fever, chills, or N/V. No previous history of heart disease. The last cardiac stress was more than five years ago. Date (Duration): 05/11/17 Time (Timing): 02:32 Timing: constant Severity/Quality: moderate Location: substernal - Chest Pain Radiation: no radiation Activities at Onset: none Modifying Factors - Improves: Present: antacids Modifying Factors - Worsens: Present: nothing Nitro Today/Relief: no nitro taken today Aspirin Treatment Today: 81 mg x 4 Associated Symptoms: Present: denies symptoms Prior Chest Pain/Cardiac Workup: Reports: prior chest pain Review of Systems - Review of Systems Constitutional: Present: no symptoms reported EYE: Present: no symptoms reported ENT: Present: no symptoms reported Respiratory: Present: no symptoms reported Cardiology: Present: no symptoms reported Gastrointestinal/Abdominal: Present: no symptoms reported Genitourinary: Present: no symptoms reported Musculoskeletal: Present: no symptoms reported Skin: Present: no symptoms reported Neurological: Present: no symptoms reported Endocrine: Present: no symptoms reported Hematologic/Lymphatic: Present: no symptoms reported Psych: Present: no symptoms reported - Patient's Past Medical History Patient History - Medical: GERD, Hypothyroidism, Other Patient History - Cardiac/Respiratory: Angina, Hypertension Patient History - Cancer: No Hx of Cancer Patient History - Surgical Procedures: Appendectomy, Cholecystectomy, Hysterectomy Patient History - Other: None - Family History Mother Family History - Medical: Family History - Cardiac/Respiratory: No pertinent hx Family History - Cancer: No pertinent family hx Father Family History - Medical: - Social History Living Situations: home Abuse History: No History of abuse Psych History: No pertinent hx, Hx of Depression Smoking Status: Former smoker Alcohol Use: none Drug Use: none - Immunizations Immunizations Up to Date: Yes Hx Pneumococcal Vaccination: No History of Influenza Vaccine: Yes Physical Exam - Physical Exam General Appearance: Present: mild distress Head Exam: Present: normal inspection Eye Exam: Normal inspection: bilateral Ears, Nose, Throat: Present: normal ENT inspection Neck: Present: normal inspection Respiratory: Present: no respiratory distress Cardiovascular/Chest: Present: regular rate, rhythm Gastrointestinal/Abdominal: Present: nontender Back Exam: Present: normal inspection Extremity Exam: Present: normal inspection Neurological Exam: Present: alert, oriented, normal mood/affect Skin Exam: Present: normal color ED Progress - Results and Orders Patient's Lab Results:: I have reviewed the patient's lab results. - Vital Signs Patient's Vital Signs:: I have reviewed the patient's vital signs. Vital Signs: Vital Signs 05/11/17 05/11/17 05/11/17 00:58 01:57 02:02 Temperature 36.2 C L Pulse Rate 83 65 74 Respiratory 14 16 18 Rate Blood Pressure 185/87 141/68 130/67 O2 Sat by Pulse 99 94 94 Oximetry 05/11/17 02:07 Temperature Pulse Rate 74 Respiratory 18 Rate Blood Pressure 121/67 O2 Sat by Pulse 94 Oximetry - EKG EKG: NSR EKG read: Interp. by me EKG Comments: sinus, rate 74, LAD - X-Ray X-Ray #1 X-Ray: chest Interpretation: Interp. by me X-ray Comments: no acute disease - Progress/Reassessment Chief Complaint: Chest Pain Progress:: Improved Progress Note-Subjective: 05/11/17 02:47 The chest pain was partially relieved with the use of a GI cocktail- rated 4/ 10. The pain was completely relieved after the use of two NTG tabs. The case was discussed with Lin who will admit the patient. It is possible that a cardiac stress test will be done in the morning. Departure Clinical Impression: Chest pain - Departure Disposition: [facility] Condition: Fair Referrals: Jennifer Perez MD [Primary Care Provider] -
[2017-05-11] MEDS ORDERED: DICYCLOMINE HCL 20 MG TABLET PO PRN (03:43)
[2017-05-11] MEDS ORDERED: traMADol HCL 50 MG TABLET PO PRN (03:43)
--- NOTE | 2017-05-11 04:08 | HP ---
Chief Complaint - Chief Complaint Date of Service: 05/11/17 Time of Service: 03:45 Chief Complaint: chest pain History of Present Illness: 71 years old female adm to the hospital from ER with reports of substernal chest pain radiated to the back. PMH significant for GERD, hypertension, depression and hypothyroidism. pt stated she was laying in bed watching TV, when she had sudden onset of substernal pain. She denies nausea, vomiting, diaphoresis, shortness of breath, and palpitation.Pt stated she thought it was GERD, but when s/s persisted she took aspirin 81mg x2 without relief. She was concerned and came to the ER. While in ER she had nitro tab x2 and GI cocktail that provided her with complete relief since adm.pt was adm a month ago with similar complaints, she was to follow up for out-pt stress test. Plan of cared discussed with pt she verbalized understanding and agrees. - Patient's Past Medical History Patient History - Medical: GERD, Hypothyroidism, Other Patient History - Cardiac/Respiratory: Angina, Hypertension, Hyperlipidemia Patient History - Cancer: No Hx of Cancer Patient History - Surgical Procedures: Appendectomy, Cholecystectomy, Hysterectomy Patient History - Other: None - Family History Mother Family History - Medical: Family History - Cardiac/Respiratory: No pertinent hx Family History - Cancer: Breast Father Family History - Medical: - Social History Living Situations: home Abuse History: No History of abuse Psych History: No pertinent hx, Hx of Depression Smoking Status: Former smoker Have you smoked in the past 12 months: No Do you dip or chew tobacco: No Patient requests Smoking Cessation Consult: No Initiate information on Smoking Cessation: No Alcohol Use: none Drug Use: none - Immunizations Immunizations Up to Date: Yes Hx Pneumococcal Vaccination: No History of Influenza Vaccine: Yes Review Of Systems (GEN) - Review of Systems Generalized/Overall Review: Present: No Symptoms Reported EENTM: Present: No Symptoms Reported Respiratory: Present: No Symptoms Reported Cardiac: Present: No Symptoms Reported Abdominal: Present: No Symptoms Reported Genitourinary: Present: No Symptoms Reported Musculoskeletal: Present: No Symptoms Reported Neurological: Present: No Symptoms Reported Skin: Present: No Symptoms Reported Endocrine: Present: No Symptoms Reported Immunizations: IMMUNIZATION HX Immunizations Up to Date Yes History of Influenza Vaccine Yes Hx Pneumococcal Vaccination No Allergies/Adverse Reactions: Allergies Allergy/AdvReac Type Severity Reaction Status Date / Time Metronidazole HCl Allergy Mild Hives Verified 05/11/17 01:03 [From Flagyl] Iodinated Contrast- Oral and AdvReac Mild HOT Verified 05/11/17 01:03 IV Dye FLASHES, [Iodinated Contrast Media - SEVERE IV Dye] HEADACHE iodine AdvReac Mild HOT Verified 05/11/17 01:03 FLASHES, SEVERE HEADACHE morphine AdvReac Mild GI, Verified 05/11/17 01:03 HALLUCINATIONS oxycodone [Oxycodone] AdvReac Mild GI, Verified 05/11/17 01:03 HALLUCINATIONS Home Medications: HOME MEDICATIONS Levothyroxine Sodium [Tirosint] 50 mcg PO DAILY 11/14/13 [Last Taken 05/10/17] Aspirin [Aspirin Enteric Coated] 81 mg PO DAILY 03/06/14 [Last Taken 05/10/17] traMADol HCL [Ultram] 50 mg PO TID PRN 03/06/14 [Last Taken 05/10/17] Lisinopril [Zestril] 10 mg PO DAILY 11/20/15 [Last Taken 05/10/17] busPIRone HCL [Buspar] 10 mg PO DAILY 11/20/15 [Last Taken 05/10/17] Dicyclomine HCl [Bentyl] 20 mg PO Q4H PRN 08/19/16 [Last Taken 05/10/17] Omeprazole Magnesium [Prilosec Otc] 40 mg PO BID 10/12/16 [Last Taken 05/10/17] Exam - Exam Vital Signs: Vital Signs - Last Taken Temp 36.2 C L 05/11/17 00:58 Pulse 62 05/11/17 02:36 Resp 14 05/11/17 02:36 BP 130/70 05/11/17 02:36 Pulse Ox 93 05/11/17 02:36 Constitutional: Present: Alert, Oriented x3, Cooperative, No distress Eye Exam: bilateral eye: normal inspection Neck: Present: full range of motion Respiratory: Present: chest non-tender, lungs clear, normal breath sounds Cardiovascular/Chest: Present: normal peripheral pulses, regular rate, rhythm, no chest tenderness, no edema Peripheral Pulses: dorsalis-pedis (R): 3+, dorsalis-pedis (L): 3+ Abdomen: Present: Normal bowel sounds, soft, nontender, nondistended /Rectal: Present: Exam deferred Extremity: Present: normal range of motion, non-tender, normal inspection, no pedal edema Skin Exam: Present: warm/dry Neurologic: Present: oriented x 3 Appearance: Present: appropriate appearance Eye contact: Present: cooperative, good eye contact Thoughts: Present: normal thought pattern Diagnostic Studies: Laboratory Results WBC 5.1 K/mm3 (4.0-10.5) 05/11/17 01:15 RBC 5.22 M/mm3 (4.2-5.4) 05/11/17 01:15 Hgb 14.8 gm/dL (12.5-16.0) 05/11/17 01:15 Hct 43.1 % (37.0-47.0) 05/11/17 01:15 MCV 82.6 fl (78-100) 05/11/17 01:15 MCH 28.4 pg (27-31) 05/11/17 01:15 MCHC 34.3 g/dl (32-36) 05/11/17 01:15 RDW 13.4 % (11.5-14.0) 05/11/17 01:15 Plt Count 204 K/mm3 (150-450) 05/11/17 01:15 MPV 10.0 fl (6.0-9.5) H 05/11/17 01:15 Immature Gran % (Auto) 0.40 % (0.001-0.429) 05/11/17 01:15 Immature Gran # (Auto) 0.02 K/mm3 (0.000-0.0310) 05/11/17 01:15 Neutrophils % 55.1 % (42-75.0) 05/11/17 01:15 Lymphocytes % 30.0 % (20-51) 05/11/17 01:15 Monocytes % 8.4 % (0.0-9) 05/11/17 01:15 Eosinophils % 4.7 % (0.0-3.0) H 05/11/17 01:15 Basophils % 1.4 % (0.0-1.0) H 05/11/17 01:15 Nucleated RBC % 0.0 k/mm3 (0-1) 05/11/17 01:15 Neutrophils # 2.8 K/mm3 (1.3-6.0) 05/11/17 01:15 Lymphocytes # 1.5 k/mm3 (1.5-3.5) 05/11/17 01:15 Monocytes # 0.4 k/mm3 (0.0-1.0) 05/11/17 01:15 Eosinophils # 0.2 k/mm3 (0.0-0.7) 05/11/17 01:15 Absolute Basophils 0.1 k/mm3 (0.0-0.1) 05/11/17 01:15 PT 9.4 Seconds (9.0-11.0) 05/11/17 01:15 INR (Anticoag Therapy) 0.94 INR (0.90-1.10) 05/11/17 01:15 PTT ([place]) 23.1 Seconds (24-32) L 05/11/17 01:15 Sodium 139 mmol/L (132-142) 05/11/17 01:15 Plasma Sodium 140 mmol/L (130-142) 05/11/17 01:15 Potassium 3.7 mmol/L (3.4-4.6) 05/11/17 01:15 Chloride 105 mmol/L (97-106) 05/11/17 01:15 Carbon Dioxide 24.4 mmol/L (24-32.6) 05/11/17 01:15 Anion Gap 13.3 mmol/L (6.8-13.8) 05/11/17 01:15 BUN 18 mg/dL (3-23) 05/11/17 01:15 Creatinine 1.01 mg/dL (0.4-1.4) 05/11/17 01:15 Est GFR (Non-Af Amer) 57 mL/min (60-130) L 05/11/17 01:15 BUN/Creatinine Ratio 17.8 (9.0-21.6) 05/11/17 01:15 Random Glucose 151 mg/dL (70-110) H 05/11/17 01:15 Calcium 8.7 mg/dL (7.9-10.9) 05/11/17 01:15 Calcium Adj for Albumin 8.9 mg/dL (8.4-10.2) 05/11/17 01:15 Total Bilirubin 0.2 mg/dL (0.0-1.1) 05/11/17 01:15 AST 16 U/L (0-48) 05/11/17 01:15 ALT 31 U/L (19-67) 05/11/17 01:15 Alkaline Phosphatase 105 U/L (50-170) 05/11/17 01:15 Troponin I Less than 0.017 ng/ml (0.00-0.10) 05/11/17 01:15 Total Protein 7.2 gm/dL (6.2-8.2) 05/11/17 01:15 Albumin 3.4 gm/dl (3.4-5.0) 05/11/17 01:15 Assessment/Plan - Narrative Narrative: Chest pain- likely epigastic Pt stated she was resting when she had sudden onset of substernal discomfort. She had complete relieve with use of nitro and GI cocktail. 09/2016 pt was adm with similar complaint and s/s resolved with GI cocktail. she has appt later today for colonoscopy consultation Troponin x1 negative and serial troponin pending EKG- NSR CXR: pending Low sodium diet Lipid panel pending Statin Keep NPO for possible stress test Hypertension On adm BP 130/70 May resume home medications Monitor VS Q shift and as indicated GERD Continue with bentyl Hypothyroidism- stable May resume home medications Code status: DNR VTE ppx:ambulate/ scd GI ppx: pepcid Time 35 minutes - Assessment/Plan (1) Chest pain Problem: Acute (2) GERD (gastroesophageal reflux disease) Problem: Chronic (3) Hypertension Problem: Chronic Qualifiers: (4) Hypothyroidism Problem: Chronic
[2017-05-11] MEDS ORDERED: ONDANSETRON HCL/PF 2 MG/ML VIAL IV PRN (04:12)
[2017-05-11 06:29] LABS: Chol/HDL Risk Ratio 5.8 mg/dL (3.3-4.4); Cholesterol 163 mg/dL (0-200); HDL Cholesterol 28 mg/dL (40-60); LDL Cholesterol 75 mg/dL (70-130); Triglycerides 298 mg/dL (30-200); Troponin I Less than 0.017 ng/ml (0.00-0.10); VLDL Cholesterol 60 mg/dL (5-40)
[2017-05-11] MEDS ORDERED: PANTOPRAZOLE SODIUM 40 MG TABLET.EC PO SCH (07:00)
[2017-05-11] MEDS ORDERED: LEVOTHYROXINE SODIUM 50 MCG TABLET PO SCH (07:00)
[2017-05-11 08:08] VITALS: BP 132/68
--- NOTE | 2017-05-11 08:33 | DS ---
Description of Stay: Liyah Fleming, is a 71 years old female adm to the hospital from ER today with reports of substernal chest pain radiated to the back. PMH significant for GERD , hypertension, depression and hypothyroidism. pt stated she was laying in bed watching TV, when she had sudden onset of substernal pain. She denies nausea, vomiting, diaphoresis, shortness of breath, and palpitation.Pt stated she thought it was GERD, but when s/s persisted she took aspirin 81mg x2 without relief. She was concerned and came to the ER. While in ER she had nitro tab x2 and GI cocktail that provided her with complete relief since adm.pt was adm 6 months ago with similar complaints, she was to follow up for out-pt stress test but did not have it done. She ruled out for AMI. She has been chest pain free since admission. We will schedule her nuclear threadmill stress test as an outpatient. Procedures Performed: none Discharge Disposition: Home self care Disposition: Home self-care Condition: Good Discharge Activity: Activity as tolerated Discharge Diet: Consistent carbs Referrals: Jennifer Perez MD [Primary Care Provider] - Additional Patient Instructions (free text): Follow up with PCP in 2 weeks. She has an appointment [facility] Dr. Ocampo this afternoon. Prescriptions (Any new or edited meds): Nitroglycerin [Nitrostat] 0.4 mg SL Q5MIN PRN #10 btl PRN Reason: Chest Pain Simvastatin [Zocor] 40 mg PO HS #30 tablet Complete Home Medications List: Complete Home Medication List: Levothyroxine Sodium [Tirosint] 50 mcg PO DAILY 11/14/13 Aspirin [Aspirin Enteric Coated] 81 mg PO DAILY 03/06/14 traMADol HCL [Ultram] 50 mg PO TID PRN 03/06/14 Lisinopril [Zestril] 10 mg PO DAILY 11/20/15 busPIRone HCL [Buspar] 10 mg PO DAILY 11/20/15 Dicyclomine HCl [Bentyl] 20 mg PO Q4H PRN 08/19/16 Omeprazole Magnesium [Prilosec Otc] 40 mg PO BID 10/12/16 Nitroglycerin [Nitrostat] 0.4 mg SL Q5MIN PRN #10 btl 05/11/17 Simvastatin [Zocor] 40 mg PO HS #30 tablet 05/11/17 Amb Orders for Discharge: NUC Treadmill Stress Complete Location: Determined By Patient
[2017-05-11] MEDS ORDERED: LISINOPRIL 10 MG TABLET PO SCH (09:00)
[2017-05-11] MEDS ORDERED: ASPIRIN 81 MG TABLET.DR PO SCH (09:00)
[2017-05-11] MEDS ORDERED: busPIRone HCL 5 MG TABLET PO SCH (09:00)
[2017-05-11] MEDS ORDERED: FAMOTIDINE 20 MG TABLET PO SCH (09:00)
[2017-05-11] MEDS ORDERED: SIMVASTATIN 40 MG TABLET PO SCH (21:00)
== END 2017-05-11 10:41 | disposition home or self-care (01) ==
LOC: ER 00:55 → MS 02:35
PROVIDERS: ADMIT Nurse Practitioner; ATTEND Internal Medicine
DX: R07.9 Chest pain, unspecified (principal); K21.9 Gastro-esophageal reflux disease without esophagitis; I10 Essential (primary) hypertension; E03.9 Hypothyroidism, unspecified; E78.5 Hyperlipidemia, unspecified
CPT/HCPCS: 36415; 71020; 80053; 80061; 84484; 85025; 85610; 85730; 93005; 96374; 99285; G0378; J2405

== ENCOUNTER 2017-05-12 11:22 | Day surgery (SDC) | payer MEDICARE, MEDICAID ==
[2017-05-12] MEDS ORDERED: RINGER'S SOLUTION,LACTATED 1,000 ML IV ONE (11:55)
[2017-05-12 14:27] VITALS: BP 126/64
--- NOTE | 2017-05-12 15:08 | OR ---
Operative Report - Dictated Report Narrative: Date: 05/12/2017 Preop dx: Black tarry stools, GERD Postop dx: Severe gastritis, Severe bile reflux, Severe gastroesophageal reflux , Small hiatal hernia, Poor gastric emptying. History of Vagotomy and Antrectomy with B1 anastomosis. Procedure: Esophagogastroduodenoscopy with biopsy x 1 and biopsy for CLOtest Staff surgeon: Chase Contreras MD Anesthesia: MAC per [employer]IST convert to GETA EBL: minimal Specimens: Stomach biopsy x 1. CLOtest biopsy x 1. Description: After informed consent a bite block was inserted and IV sedation was administered per [employer]. The scope was introduced to the oral cavity and this induced emesis. The scope was withdrawn and patient suctioned. Bite block was re -inserted and sedation deepened. The scope was introduced to the oral cavity and again induced emesis. The scope was withdrawn and the patient was suctioned. She was then discharged from the endoscopy suite and taken to an OR suite where general endotracheal anesthesia was induced. A flexible fiberoptic video endoscope was inserted through the posterior pharynx and into the esophagus under direct vision. The scope was then advanced through the esophagus , stomach and into the duodenum through a widely patent B1 anastomosis. The duodenum was grossly normal and without ulceration. The scope was withdrawn into the stomach. Severe gastritis was noted. No ulcers were seen. A biopsy for CLOtest was taken with cold forceps. An additional biopsy was taken for anatomic pathology with cold forceps. Particulates were noted within the stomach indicating poor gastric emptying. Retroflexion of the scope within the stomach revealed a small hiatal hernia without ulcers. The scope was withdrawn into the distal esophagus. The was a large amount of bilious reflux noted in the esophagus on entry and withdrawal. The patient tolerated the procedure well and was discharged from the OR in stable condition.
== END 2017-05-12 11:23 | disposition home or self-care (01) ==
LOC: AMB 11:22
PROVIDERS: ATTEND Specialist
PROC: 0DB68ZX Excision of Stomach, Via Natural or Artificial Opening Endoscopic, Diagnostic (ICD-10-PCS; principal; 2017-05-12 13:30)
DX: K29.70 Gastritis, unspecified, without bleeding (principal); K44.9 Diaphragmatic hernia without obstruction or gangrene; E78.5 Hyperlipidemia, unspecified; E03.9 Hypothyroidism, unspecified; K58.9 Irritable bowel syndrome, unspecified; E11.9 Type 2 diabetes mellitus without complications; F32.9 Major depressive disorder, single episode, unspecified; Z87.891 Personal history of nicotine dependence; Z68.33 Body mass index [BMI] 33.0-33.9, adult